=== PATIENT | female | born 1945 | race Caucasian/White ===

== ENCOUNTER → 2018-02-24 08:11 | Outpatient (CLI) | payer MEDICARE, OTHER, SELFPAY ==
--- NOTE | 2018-02-24 | DI.ECHO.S_ITS ---
[facility]---------+ [facility] +---------+ : : [address] : [address] : : : : [id number] : : : : Phone: [phone]+ Echocardiogram Report + + :Name: KERRY WALTON Study Date: 02/24/2018 Height: 65 in : :[facility] Weight: 157 lb : : Gender: Female BSA: 1.8 m2 : :: 1945 Age: 72 yrs BP: 132/74 mmHg: :Reason For Study: Dyspnea : : Performed By: Nicole Quiroga : :Referring: NELDA MARROQUIN J : + + Interpretation Summary The left ventricle is normal in size, wall thickness, and systolic function without any focal wall motion abnormalities with the ejection fraction visually estimated to be 60-65%. Assessment of diastolic parameters indicates normal left ventricular diastolic function and normal filling pressures. The right ventricle is normal in size and function and the right ventricular systolic pressure is estimated at 23 mmHg assuming a right atrial pressure of 3 mm Hg. Both atria are normal in size. There is mild tricuspid regurgitation. There is no other significant valvular heart disease. The ascending aorta is at the upper limits of normal in size. Procedure: A two-dimensional transthoracic echocardiogram with color flow and Doppler was performed. The study quality was technically good. There is no prior echocardiogram noted for this patient. The patient was in normal sinus rhythm during the exam. Left Ventricle: The left ventricle is normal in size, wall thickness, and systolic function without any focal wall motion abnormalities. The ejection fraction is estimated to be 60-65%. Assessment of diastolic parameters indicates normal left ventricular diastolic function and normal filling pressures. Right Ventricle: The right ventricle is normal in size and function. Atria: Both atria are normal in size. The interatrial septum is intact with no evidence for an atrial septal defect. Mitral Valve: There is mild mitral annular calcification. The mitral valve leaflets appear borderline thickened, but open well. There is trace mitral regurgitation. Aortic Valve: The aortic valve is trileaflet. The aortic valve is slightly calcified. The aortic valve opens well. There is no aortic valve stenosis. No aortic regurgitation is present. Tricuspid Valve: The tricuspid valve is normal in structure and function. There is mild tricuspid regurgitation. The right ventricular systolic pressure is estimated at 23 mmHg assuming a right atrial pressure of 3 mm Hg. Pulmonic Valve: The pulmonic valve is not well seen, but is grossly normal. There is trace pulmonic regurgitation. There is no other significant valvular heart disease. Great Vessels: The aortic root is normal size. The ascending aorta is at the upper limits of normal in size. The IVC is of normal diameter and collapses greater than 50% with a sniff. This suggests a low right atrial pressure of 3 mm Hg. Pericardium/ Pleura There is no pericardial effusion. There is no pleural effusion. MMode/2D Measurements & Calculations LVIDd: 4.5 cm Ao root diam: 3.0 cm LVIDs: 2.9 cm Aortic Jxn: 2.5 cm FS: 35.6 % asc Aorta Diam: 3.3 cm EPSS: 0.56 cm Ao Arch Diam (Prox Trans): 2.8 cm IVSd: 0.84 cm LVPWd: 0.80 cm LV martinez. diameter/BSA (cm/m^2): 2.5 LV sys. diameter/BSA (cm/m^2): 1.6 LA dimension: 3.2 cm RA long axis: 4.1 cm LA A2 area: 22.3 cm2 RA area: 11.4 cm2 LA A4 area: 14.4 cm2 RA vol: 26.8 ml LA length (vol): 4.8 cm RA : 15.0 ml/m2 LA vol: 56.2 ml IVC diam: 1.7 cm LA vol index: 31.5 ml/m2 RVDd major: 4.7 cm RVD1 (basal): 3.3 cm RVD2 (mid): 2.7 cm Doppler Measurements & Calculations Ao V2 max: 163.4 cm/sec MV E max juan carlos: 81.2 cm/sec Ao V2 mean: 106.0 cm/sec MV A max juan carlos: 81.2 cm/sec Ao max P.7 mmHg MV E/A: 1.0 Ao mean P.4 mmHg Med Peak E' Juan Carlos: 5.6 cm/sec Ao V2 VTI: 35.3 cm E/E' med: 14.5 Lat Peak E' Juan Carlos: 6.3 cm/sec E/E' lat: 12.8 E/e' average: 13.7 MV dec time: 0.23 sec MV P1/2t: 69.0 msec TR max juan carlos: 220.5 cm/sec MV P1/2t max juan carlos: 82.0 cm/sec TR max P.5 mmHg MVA(P1/2t): 3.2 cm2 PA V2 max: 84.8 cm/sec PA V2 mean: 56.3 cm/sec PA mean P.5 mmHg PA Accel Time: 0.12 sec Reading Physician:HERMANN
== END ==
PROVIDERS: Visit Provider Family Medicine
DX: R06.00 Dyspnea, unspecified (principal)
CPT/HCPCS: 93306

== ENCOUNTER → 2019-06-28 09:52 | Outpatient (CLI) | payer MEDICARE, OTHER, SELFPAY | PROVIDERS: PCP Internal Medicine; Visit Provider Internal Medicine | DX: M85.852 Other specified disorders of bone density and structure, left thigh (principal); E07.9 Disorder of thyroid, unspecified; Z82.62 Family history of osteoporosis | CPT/HCPCS: 77080 ==

== ENCOUNTER → 2019-10-18 18:57 | Outpatient (ROUT) | payer MEDICARE, OTHER, SELFPAY ==
[2019-10-18 19:51] LABS: TSH w/ Reflex to FT4 1.31 uIU/mL (0.47-4.68)
== END ==
PROVIDERS: PCP Internal Medicine; Visit Provider Internal Medicine
DX: E03.9 Hypothyroidism, unspecified (principal)
CPT/HCPCS: 84443

== ENCOUNTER → 2019-11-23 07:34 | Outpatient (CLI) | payer MEDICARE, OTHER, SELFPAY ==
--- NOTE | 2019-11-23 09:15 | PM.TREADMILL ---
Cardiac Stress Test Report Referral & Results Date Patient Seen: 11/23/19 Time Patient Seen: 09:15 Requesting provider: Jazmin Roberts Indication: chest pain Rest ECG: sinus rhythm Procedure Note: Standard angelita protocol, 7:02, 7 mets Very good exercise capacity Normal hemodynamic response to exercise 4/10 chest pain at rest which did not increase with exercise, not suggestive of angina; no ecg changes with chest pain Resting ecg normal sinus rhythm, nonspecific st changes, no ectopy Impression: nonconclusive exercise stress test; MIBI images pending Please note: Actual ECG tracings can be found in the PACS system.
--- NOTE | 2019-11-24 14:05 | DI.NM.S_ITS ---
DATE OF SERVICE: PROCEDURE: Exercise perfusion study. DATE OF STUDY: 11/23/2019. INDICATIONS: Chest pain. RADIOPHARMACEUTICAL: 24.4 millicurie technetium-99m Myoview intravenous was injected at stress and 24.1 millicurie technetium-99m Myoview intravenous was injected at rest. CARDIAC STRESS: The patient underwent exercise perfusion study under the supervision of an attending staff. She walked on Nathaniel protocol for 7 minute 2 seconds, achieving 97% of target heart rate with normal blood pressure response. The patient achieved functional aerobic impairment of -29% and 10.1 METS of workload. She had baseline chest pain prior to exercise, on a scale of 1-10, it was 4 in intensity. Baseline rhythm was sinus. During stress, no ischemic changes. No significant arrhythmias. RAW DATA: Breast shadow was seen. GATED STUDY: Resting LV ejection fraction 77% and stress LV ejection fraction 85% without any obvious wall motion abnormalities. Resting end-diastolic volume 66 mL. No transient ischemic dilatation. TID ratio 1.03, which is within normal limits. Lung heart ratio 0.25, which is within normal limits. MYOCARDIAL PERFUSION SCAN: Stress supine and resting supine images revealed a small size minimally decreased perfusion of apex which got resolved during prone images suggestive of breast tissue attenuation artifact. No convincing ischemia or infarction. CONCLUSION: I will call this study a normal myocardial perfusion study with evidence of breast tissue attenuation artifact which got resolved during prone images. Good exercise tolerance. No ischemic EKG changes. Preserved LV function. Normal hemodynamic response. The patient has resting chest discomfort. As far as perfusion scan is concerned, this is a low risk myocardial perfusion scan. Consider workup for other alternative diagnosis of chest pain. Carmel Newman - NITA/lanette/da doc#: [id number]/job#: [id number] dd: 11/24/2019 12:44:00 dt: 11/24/2019 13:29:00 DICTATING MD/COPIES TO: Avery Pastrana MD COPIES MNE: SHARMILA;
== END ==
PROVIDERS: PCP Internal Medicine; Referring Provider Internal Medicine; Visit Provider Internal Medicine
DX: R07.9 Chest pain, unspecified (principal)
CPT/HCPCS: 78452; 93017; A9502

== ENCOUNTER → 2019-12-09 18:21 | Outpatient (ROUT) | payer MEDICARE, OTHER, SELFPAY ==
[2019-12-09 19:08] LABS: Alanine Aminotransferase 25 IU/L (<35); Alkaline Phosphatase 89 U/L (38-126); Aspartate Aminotransferase 29 IU/L (14-36); Bilirubin Total 0.5 mg/dL (0.2-1.3); Lipase 146 U/L (23-300)
== END ==
PROVIDERS: PCP Internal Medicine; Visit Provider Internal Medicine
DX: R10.9 Unspecified abdominal pain (principal)
CPT/HCPCS: 82247; 83690; 84075; 84450; 84460

== ENCOUNTER → 2019-12-13 11:57 | Outpatient (CLI) | payer MEDICARE, BC, SELFPAY ==
--- NOTE | 2019-12-13 | DI.CT.S_ITS ---
PROCEDURE: CT CHEST W CON INDICATIONS: Unspecified abdominal pain TECHNIQUE: After the administration of intravenous contrast, 5 mm thick sections acquired from the pulmonary apices to the posterior costophrenic angles. 1 mm axial lung, 5 mm thick coronal and sagittal reformats and 7 mm axial MIP were acquired. For radiation dose reduction, the following was used: automated exposure control, adjustment of mA and/or kV according to patient size. COMPARISON: None. FINDINGS: Image quality: Excellent. Lungs and pleura: No acute air space opacities. No pleural effusions or pneumothorax. Central and peripheral airways are patent and normal in caliber. Mediastinum: Heart size is normal. No pericardial effusion. No mediastinal or hilar adenopathy by size criteria. Thoracic aorta and central pulmonary arteries are normal in size. Esophagus is normal in caliber. No hiatal hernia. Bones and chest wall: No suspicious bony lesions. No vertebral body compression fractures. No axillary or supraclavicular adenopathy by size criteria. Thyroid gland appears normal. Abdomen: Visualized upper abdominal solid organs appear normal. Upper abdominal bowel loops are normal in caliber. Several small hypodensities, subcentimeter, are present within the liver parenchyma and 1 a simple appearing cyst measuring only 1.8 cm in maximal dimension is noted. No solid mass lesion is found. IMPRESSION: 1. Source of epigastric pain is not identified. 2. Scattered cysts are present within the liver parenchyma, and only one measures over 1 cm located at the left medial hepatic segment superiorly near the IVC. No followup recommended. Dictated by: Parmjit Tyson M.D. on 12/13/2019 at 16:14 Approved by: Parmjit Tyson M.D. on 12/13/2019 at 16:17
[2019-12-13 14:44] LABS: Blood Urea Nitrogen 15 mg/dL (7-17); Calcium 9.4 mg/dL (8.4-10.2); Carbon Dioxide 32 mmol/L (22-32); Chloride 103 mmol/L (98-107); Estimated Glomerular Filt Rate > 60.0 mL/min (>60); Glucose 122 mg/dL (80-110); HEMOLYSIS < 15 (0-50); Potassium 3.9 mmol/L (3.4-5.1); Sodium 141 mmol/L (137-145)
== END ==
PROVIDERS: PCP Internal Medicine; Referring Provider Internal Medicine; Visit Provider Internal Medicine
DX: R10.13 Epigastric pain (principal); K76.89 Other specified diseases of liver
CPT/HCPCS: 36415; 71260; 80048; Q9967

== ENCOUNTER → 2020-04-05 09:36 | Outpatient (CLI) | payer MEDICARE, BC, SELFPAY ==
--- NOTE | 2020-04-05 | DI.MG.S_ITS ---
BILATERAL DIGITAL SCREENING MAMMOGRAM 3D/2D WITH CAD: 04/05/2020 CLINICAL: Routine screening. Comparison is made to exams dated: 01/14/2019 mammogram, 09/04/2017 mammogram, and 05/13/2016 mammogram - [facility]. There are scattered fibroglandular elements in both breasts. Current study was also evaluated with a Computer Aided Detection (CAD) system. No significant masses, calcifications, or other findings are seen in either breast. There has been no significant interval change. IMPRESSION: NEGATIVE There is no mammographic evidence of malignancy. A 1 year screening mammogram is recommended. This exam was interpreted at Station ID: [id number]. NOTE: For mammograms, a report in lay terms will be sent to the patient. Approximately 15% of breast malignancies will not be visualized mammographically. In the management of a palpable breast mass, a negative mammogram must not discourage biopsy of a clinically suspicious lesion. Electronically Signed By: Kash hu/grisel:04/05/2020 11:32:33 letter sent: Normal Exam ACR BI-RADS Category 1: Negative 3341F
== END ==
PROVIDERS: PCP Internal Medicine; Referring Provider Internal Medicine; Visit Provider Internal Medicine
DX: Z12.31 Encounter for screening mammogram for malignant neoplasm of breast (principal)
CPT/HCPCS: 77063; 77067

== ENCOUNTER → 2021-04-27 10:07 | Outpatient (CLI) | payer MEDICARE, OTHER, SELFPAY ==
--- NOTE | 2021-04-27 | DI.MG.S_ITS ---
BILATERAL DIGITAL SCREENING MAMMOGRAM 3D/2D WITH CAD: 04/27/2021 CLINICAL: Routine screening. Comparison is made to exams dated: 04/05/2020 mammogram - [facility], 01/14/2019 mammogram, and 09/04/2017 mammogram - [facility]. There are scattered fibroglandular elements in both breasts. Current study was also evaluated with a Computer Aided Detection (CAD) system. No significant masses, calcifications, or other findings are seen in either breast. There has been no significant interval change. IMPRESSION: NEGATIVE There is no mammographic evidence of malignancy. A 1 year screening mammogram is recommended. This exam was interpreted at Station ID: [id number]. NOTE: For mammograms, a report in lay terms will be sent to the patient. Approximately 15% of breast malignancies will not be visualized mammographically. In the management of a palpable breast mass, a negative mammogram must not discourage biopsy of a clinically suspicious lesion. Electronically Signed By: Papa marley/grisel:04/27/2021 10:54:26 letter sent: Normal Exam ACR BI-RADS Category 1: Negative 3341F
== END ==
PROVIDERS: PCP Internal Medicine; Referring Provider Internal Medicine; Visit Provider Internal Medicine
DX: Z12.31 Encounter for screening mammogram for malignant neoplasm of breast (principal)
CPT/HCPCS: 77063; 77067

== ENCOUNTER → 2021-07-16 09:07 | Outpatient (CLI) | payer MEDICARE, OTHER, SELFPAY ==
[2021-07-16 10:46] LABS: COVID19 -Nasal RAPID Negative (Negative)
== END ==
PROVIDERS: PCP Internal Medicine; Referring Provider Nurse Practitioner Family; Visit Provider Nurse Practitioner Family
DX: Z20.822 Contact with and (suspected) exposure to COVID-19 (principal); Z01.812 Encounter for preprocedural laboratory examination
CPT/HCPCS: 87635; C9803

== ENCOUNTER 2021-07-17 10:16 | Day surgery (SDC) | payer MEDICARE, OTHER, SELFPAY ==
--- NOTE | 2021-07-17 10:50 | PM.PREOP ---
Pre-operative Note Interval Note History & Physical reviewed/Exam performed by Physician: Yes Changes to H&P: No
--- NOTE | 2021-07-17 10:51 | PM.OP.1 ---
Operative Date/Time/Diagnoses Pre-op diagnosis: Nuclear Cataract Left eye Post-op diagnosis: same Procedure & Clinicians Same procedure as scheduled: Yes Surgeon: Emeterio Lawson Anesthesia Type: MAC +/- and Sedation Operative Notes Procedure in detail: Patient brought to the operating suite. Tetracaine drops placed in the left eye. Marking instrument was used to rachael the vertical and horizontal meridians. Patient was prepped and draped in sterile manner. Wire lid speculum was placed in the eye. Betadine drops were placed on the eye. This was irrigated. Lidocaine jelly was placed on the eye. A paracentesis port was created with a side-port blade. 0.1 mL 1% preservative free lidocaine was injected into the anterior chamber. The anterior chamber was deepened with viscoelastic. 2.6 mm keratome was used to create a temporal clear corneal incision. Cystotome and Utrata forceps were used to create continuous tear capsulorrhexis. Balanced salt solution was used to hydro dissect the nucleus. The phacoemulsification handpiece was inserted and the nucleus was removed using the stop and chop technique. The irrigation aspiration handpiece was inserted and the remaining cortex was removed. Anterior chamber was deepened with viscoelastic. An Arreguin [id number] intraocular lens with a power of 23.5 was injected into the capsular bag. Irrigation aspiration handpiece was inserted and the remaining viscoelastic was removed. The lens was rotated to the 90 degree meridian. Incision was hydrated with balanced salt solution and found to be leak free with pressure with Weck-Nel sponges. 0.1 mL Vigamox injected anterior chamber. 0.3 mL Kenalog 10 mg was injected subconjunctivally. Lid speculum was removed. The patient left the operating room in excellent condition. Complications: none Post-operative Condition: stable Disposition: same day surgery
[2021-07-17] MEDS: PROPARACAINE 0.5% OPHTH SOL 2 DROPS EYE-OP (10:53)
[2021-07-17 10:54] VITALS: BP 142/73; PULSE 73; RESP 16; TEMP 36.5; O2SAT 100; BMI 25.0
[2021-07-17] MEDS: CATARACT EYE COMPOUND (10 DROPS/SYRINGE) 3 DROPS EYE-OP (11:01)
[2021-07-17] MEDS: MOXIFLOXACIN INJ 4 MG/0.8 ML VIAL 0.5 MG EYE-OP (11:42)
[2021-07-17] MEDS: HYALURONATE SODIUM 30 MG-10 MG/ML SYRINGES 1 BOX INTRAOCULA (11:42)
[2021-07-17] MEDS: LIDOCAINE 2% (GLYDO) 6 ML GEL TOP (11:42)
[2021-07-17] MEDS: TRIAMCINOLONE 50 MG/5 ML VIAL INJ (11:43)
[2021-07-17] MEDS: TETRACAINE 0.5% OPHTH DROPS 4 ML 2 DROPS EYE-OP (11:43)
[2021-07-17] MEDS: PHENYLEPHRINE/LIDOCAINE VIAL (OR) 0.2 ML EYE-OP (11:43)
[2021-07-17] MEDS: BALANCED SALT IRRIG SOLN NO.2 500 ML, EPINEPHrine 1 MG IRR (11:44)
[2021-07-17 12:55] VITALS: BP 137/74; PULSE 74; RESP 16; TEMP 36.6; O2SAT 98
== END 2021-07-17 13:00 | disposition home or self-care (01) ==
PROVIDERS: PCP Internal Medicine; Referring Provider Ophthalmology; Visit Provider Ophthalmology
PROC: (CPT 66984; principal; 2021-07-17 12:15)
DX: H25.12 Age-related nuclear cataract, left eye (principal); E03.9 Hypothyroidism, unspecified
CPT/HCPCS: 66984; J0171; J2250; J3301; V2787

== ENCOUNTER → 2021-07-30 13:36 | Outpatient (CLI) | payer MEDICARE, OTHER, SELFPAY ==
[2021-07-30 16:55] LABS: COVID19 -Nasal RAPID Negative (Negative)
== END ==
PROVIDERS: PCP Internal Medicine; Visit Provider Nurse Practitioner Family
DX: Z20.822 Contact with and (suspected) exposure to COVID-19 (principal)
CPT/HCPCS: 87635

== ENCOUNTER 2021-07-31 07:20 | Day surgery (SDC) | payer MEDICARE, OTHER, SELFPAY ==
[2021-07-31 07:33] VITALS: BP 132/77; PULSE 86; RESP 16; TEMP 36.1; O2SAT 98; BMI 25.0
[2021-07-31] MEDS: PROPARACAINE 0.5% OPHTH SOL 2 DROPS EYE-OP (07:41)
[2021-07-31] MEDS: CATARACT EYE COMPOUND (10 DROPS/SYRINGE) 3 DROPS EYE-OP (07:45)
--- NOTE | 2021-07-31 09:06 | P.OP_ITS ---
Operative Date/Time/Diagnoses Pre-op diagnosis: Nuclear cataract right eye Procedure & Clinicians Procedure: Cataract Surgery Same procedure as scheduled: Yes Surgeon: Emeterio Lawson Anesthesia Type: MAC +/- and Sedation Operative Notes Procedure in detail: Patient brought to the operating suite. Tetracaine drops placed in the right eye. Marking instrument was used to rachael the vetical and horizontal meridians. Patient was prepped and draped in sterile manner. Wire lid speculum was placed in the eye. Marking instrument was used to rachael the 75 degree meridian. Betadine drops were placed on the eye. This was irrigated. Lidocaine jelly was placed on the eye. A paracentesis port was created with a side-port blade. 0.1 mL 1% preservative free lidocaine was injected into the anterior chamber. The anterior chamber was deepened with viscoelastic. 2.6 mm keratome was used to create a temporal clear corneal incision. Cystotome and Utrata forceps were used to create continuous tear capsulorrhexis. Balanced salt solution was used to hydro dissect the nucleus. The phacoemulsification handpiece was inserted and the nucleus was removed using the stop and chop technique. The irrigation aspiration handpiece was inserted and the remaining cortex was removed. Anterior chamber was deepened with viscoelastic. An Arreguin [id number] intraocular lens with a power of 21.5 was injected into the capsular bag. Irrigation aspiration handpiece was inserted and the remaining viscoelastic was removed. The lens was rotated to the 75 degree meridian. Incision was hydrated with balanced salt solution and found to be leak free with pressure with Weck- Nel sponges. 0.1 mL Vigamox injected anterior chamber. 0.3 mL Kenalog 10 mg was injected subconjunctivally. Lid speculum was removed. The patient left the operating room in excellent condition. Complications: none Post-operative Condition: stable Disposition: same day surgery
--- NOTE | 2021-07-31 09:06 | PM.PREOP ---
Pre-operative Note Interval Note History & Physical reviewed/Exam performed by Physician: Yes Changes to H&P: No
[2021-07-31] MEDS: MOXIFLOXACIN INJ 4 MG/0.8 ML VIAL 0.5 MG EYE-OP (09:18)
[2021-07-31] MEDS: PHENYLEPHRINE/LIDOCAINE VIAL (OR) 0.2 ML EYE-OP (09:18)
[2021-07-31] MEDS: LIDOCAINE 2% (GLYDO) 6 ML GEL TOP (09:18)
[2021-07-31] MEDS: TRIAMCINOLONE 50 MG/5 ML VIAL INJ (09:18)
[2021-07-31] MEDS: HYALURONATE SODIUM 30 MG-10 MG/ML SYRINGES 1 BOX INTRAOCULA (09:18)
[2021-07-31] MEDS: TETRACAINE 0.5% OPHTH DROPS 4 ML 2 DROPS EYE-OP (09:19)
[2021-07-31] MEDS: BALANCED SALT IRRIG SOLN NO.2 500 ML, EPINEPHrine 1 MG IRR (09:19)
[2021-07-31 09:35] VITALS: BP 106/64; PULSE 82; RESP 16; TEMP 36.7; O2SAT 99
--- NOTE | 2021-07-31 10:00 | SUR.PHASEII ---
Pt ready to go ride called, pt left unit in stable condition.
== END 2021-07-31 09:55 | disposition home or self-care (01) ==
PROVIDERS: PCP Internal Medicine; Referring Provider Ophthalmology; Visit Provider Ophthalmology
PROC: (CPT 66984; principal; 2021-07-31 09:15)
DX: H25.11 Age-related nuclear cataract, right eye (principal); E03.9 Hypothyroidism, unspecified
CPT/HCPCS: 66984; J0171; J2250; J3301; V2787

== ENCOUNTER → 2021-10-15 09:03 | Outpatient (CLI) | payer MEDICARE, OTHER, SELFPAY ==
[2021-10-15 12:20] LABS: COVID19 -Nasal RAPID Negative (Negative)
== END ==
PROVIDERS: PCP Internal Medicine; Referring Provider Nurse Practitioner Family; Visit Provider Nurse Practitioner Family
DX: Z01.812 Encounter for preprocedural laboratory examination (principal); Z20.822 Contact with and (suspected) exposure to COVID-19
CPT/HCPCS: 87635; C9803

== ENCOUNTER 2021-10-16 10:54 | Day surgery (SDC) | payer MEDICARE, OTHER, SELFPAY ==
[2021-10-16] VITALS (7 sets, daily range): BP systolic 133–153; BP diastolic 66–80; PULSE 62–70; RESP 14–18; TEMP 36.4–36.8; O2SAT 97–98; BMI 25.0
--- NOTE | 2021-10-16 | PATH_ITS ---
[facility] Accession Number: [id number] . 01 Material submitted: . PART A: cecum - CECAL POLYP PART B: duodenum - BIOPSY OF SECOND PORTION OF DUODENUM PART C: duodenum bulb - BIOPSY DUODENAL BULB PART D: stomach - BIOPSY ANTRUM STOMACH PART E: gastrointestinal site - GASTRIC POLYPS . 02 Diagnosis: A. Cecum, Polyp, Biopsy: Colonic mucosa with surface hyperplastic-type changes. Additional levels were examined. Negative for dysplasia and malignancy. . B. Duodenum, Second Portion, Biopsy: Duodenal mucosa with no diagnostic abnormality. Negative for active inflammation, features of sprue, dysplasia, or malignancy. . C. Duodenum Bulb, Biopsy: Duodenal mucosa with gastric heterotopia. Negative for intraepithelial lymphocytosis or villous blunting. Negative for dysplasia and malignancy. . D. Stomach Antrum, Biopsy: Antral mucosa with no diagnostic abnormality. Negative for Helicobacter by immunohistochemistry. Negative for intestinal metaplasia. Negative for dysplasia and malignancy. . E. Stomach, Polyps, Biopsies: Fundic gland polyps. Negative for Helicobacter organisms on H/E stain. Negative for intestinal metaplasia. Negative for dysplasia and malignancy. . [facility] 10/19/2021 1057 Local . 02 Electronically signed: . Giselle Conway MD, Pathologist NPI- [id number] . 01 Gross description: . Part A: CECAL POLYP: Received in formalin is 1 fragment(s) of herndon, soft tissue measuring 0.3 x 0.2 x 0.2 cm submitted entirely in 1 cassette(s) Part B: BIOPSY OF SECOND PORTION OF DUODENUM: Received in formalin is 1 fragment(s) of herndon, soft tissue measuring 0.3 x 0.2 x 0.2 cm submitted entirely in 1 cassette(s) Part C: BIOPSY DUODENAL BULB: Received in formalin are 2 fragment(s) of herndon, soft tissue measuring 0.1 x 0.1 x 0.1 cm in aggregate submitted entirely in 1 cassette(s) Part D: BIOPSY ANTRUM STOMACH: Received in formalin are 2 fragment(s) of herndon, soft tissue measuring 0.1 x 0.1 x 0.1 cm to 0.3 x 0.1 x 0.1 cm submitted entirely in 1 cassette(s) Part E: GASTRIC POLYPS: Received in formalin are 2 fragment(s) of herndon, soft tissue measuring 0.2 x 0.2 x 0.2 cm to 0.3 x 0.2 x 0.2 cm submitted entirely in 1 cassette(s) /DUSTY 10/17/2021 1949 Local . 02 Microscopic: . A. Additional levels were examined. . D. An immunohistochemical stain was performed to evaluate for Helicobacter organisms and is negative. The control stain showed appropriate reactivity. . * This test was developed and its performance characteristics determined by [facility]. It has not been cleared or approved by the U.S. Food and Drug Administration. The FDA has determined that such clearance or approval is not necessary. This test is used for clinical purposes. It should not be regarded as investigational or for research. . 02 Pathologist provided ICD-10: D50.9 . 02 CPT . 481571, 257457, 980524, 733925, 241596, W38864 Performed at: 01 [facility] Cytology [address] [id number] MD Kash Menjivar MD Phone: [phone] Performed at: 02 [facility] [address] [place] [id number] MD Giselle Conway MD Phone: [phone]
[2021-10-16] MEDS: SODIUM CHLORIDE 0.9% 1,000 ML 84 ML IV (11:31)
--- NOTE | 2021-10-16 12:29 | PM.HP.1 ---
History of Present Illness History of Present Illness Date Patient Seen: 10/16/21 Time Patient Seen: 12:30 Chief complaint: DX COLONOSCOPY & EGD W/POSS BX Narrative: Postprandial fullness iron deficiency anemia I reviewed my office note from September 10. No changes. Patient History Medical History Bilateral inguinal hernia GERD (gastroesophageal reflux disease) Hypercholesteremia Hypothyroidism Iron deficiency anemia Surgical History Hx of appendectomy Family & Social History Social History: household members spouse Tobacco & Substance use: Smoking Status Never smoker alcohol intake current alcohol intake frequency holiday/special occasion Substance Use Type does not use Meds Home Medications and Allergies Home Medications Medication Instructions Recorded Confirmed Type multivitamin (Multiple Vitamins) 1 tab PO QDAY #0 06/14/17 07/17/21 History iron 40 mg capsule 35 mg PO 07/17/21 History atorvastatin 10 mg PO DAILY 10/16/21 10/16/21 History levothyroxine 250 mcg PO DAILY 10/16/21 10/16/21 History Allergies Allergy/AdvReac Type Severity Reaction Status Date / Time meperidine [From Demerol] AdvReac Unknown Vomiting Verified 10/16/21 11:05 Review of Systems Review of Systems ROS: Yes All systems reviewed with the patient and are negative except as otherwise documented Exam Vital Signs (past 8 hours): - 10/16/21 11:14 Temperature 98.3 F Pulse Rate 70 Respiratory Rate 18 Blood Pressure 153/75 H Pulse Oximetry 97 Oxygen Delivery Method Room Air Const General: cooperative and comfortable Orientation: alert HENDE Head: normocephalic Ears: external ears normal Nose: external nose normal Face and sinus: normal facial exam Mouth: oral mucosae normal Eyes General: appearance normal, both eyes and all related structures Neck Neck: normal visual inspection Chest Chest: normal inspection of the chest Resp Effort & Inspection: normal respiratory effort Cardio Rate: regular rate GI Inspection: normal to inspection Skin General: no rashes or lesions noted and No jaundice Neuro General: patient alert and moves all extremities Cognition: normal cognition Speech: speech normal Extrem General: no pedal edema Psych Appearance: grossly normal Assessment & Plan Assessment & Plan narrative: 75-year-old female with iron deficiency anemia. She has some postprandial fullness. EGD and colonoscopy are pursued today. Time Spent With Patient Critical Care time: I spent a total of [] minutes of critical care time on this patient's care today; this time is exclusive of procedural time.
--- NOTE | 2021-10-16 12:31 | PM.PREOP ---
Pre-operative Note COVID-19 COVID-19 status: Negative Result date/Date tested (Pos, Neg/Pending): 10/15/21 Interval Note History & Physical reviewed/Exam performed by Physician: Yes Changes to H&P: No ASA Class (for procedural sedation): II
--- NOTE | 2021-10-16 13:34 | PM.OP.EC ---
Operative Date/Time/Diagnoses Date of procedure: 10/16/21 Time of procedure: 13:34 Pre-op diagnosis: Iron deficiency anemia early satiety Post-op diagnosis: same Procedure & Clinicians Study performed: EGD with biopsies and colonoscopy with cold snare polypectomy Same procedure as scheduled: Yes Indications: Iron deficiency anemia and early satiety Surgeon: Alfredo Agosto Procedure Notes SCOAP/Timeout: Done Procedure in detail: After the risks and benefits were explained, written and verbal informed consent was obtained. The patient was brought into the procedure room and placed into the left lateral decubitus position. Please see nurse professor of public administration notes for sedation details. The scope was introduced into the mouth through the bite block and advanced under direct visualization to the 2nd portion of the duodenum. The scope was slowly withdrawn carefully examining the mucosa for any defects or lesions. Retroflexed views were accomplished in the stomach. The stomach was decompressed, the scope was then removed from the patient who tolerated the procedure well. The patient was then turned around a digital rectal examination accomplished no significant pathology apart from some mild internal hemorrhoids. Scope was introduced into the rectum and advanced to the cecum as identified by the appendiceal orifice and ileocecal valve. The terminal ileum was briefly interrogated the scope was then slowly withdrawn to carefully examine the mucosa for any defects or lesions. Multiple direct views were made through the dentate line for exclusion of pathology. The colon was decompressed scope removed from the patient who tolerated the procedure well. Pediatric colonoscope Bowel prep adequate Scope withdrawal time: 9 minutes Sedation minutes: 38 Complications: none Impression: 1. Duodenum: The configuration of the duodenum was a little unusual and reduction in the 2nd portion was quite difficult to accomplish the scope wanted to fall back into stomach. As a result of the configuration the major papilla was identified in the 5:00 a.m. location for most of our examination of D2. In light of the iron deficiency I took a couple of biopsies from the duodenal mucosa for exclusion of sprue. 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 2. Stomach: No ulcers no outlet obstruction. Mild erythema throughout the antrum. Biopsies were taken in the antrum for exclusion of Helicobacter pylori. Otherwise there is several diminutive benign-appearing polyps in the proximal stomach and body. Couple of these were sampled for histopathologic analysis. Otherwise retroflexed views of the LES were unremarkable. 3. Esophagus: The squamocolumnar junction correlated with the top of the gastric folds. No suggestion of Vargas's. The patient did have LA grade a erosive esophagitis no strictures no mass lesions the remainder of the esophagus was unremarkable. 4. Terminal ileum: This appeared visually normal. 5. Colon: There was a 5 mm sessile polyp in the cecum removed with cold snare polypectomy. Otherwise no additional significant mucosal pathology was appreciated throughout. The patient had a moderately tortuous rectosigmoid region with respect to navigation. Endoscopic diagnosis 1. Irregular appearing duodenal bulb 2. Multiple gastric polyps 3. LA grade a erosive esophagitis 4. Mild gastropathy 5. Colon polyp 6. Grade 1 internal hemorrhoids Post-procedure Plan for aftercare: 1. Await histopathology 2. If there are no findings histologically to account for the iron deficiency picture, consider capsule endoscopy if the iron deficiency/anemia persists in the absence of frequent phlebotomy. Disposition: PACU
== END 2021-10-16 14:10 | disposition home or self-care (01) ==
PROVIDERS: PCP Internal Medicine; Referring Provider Internal Medicine Gastroenterology; Visit Provider Internal Medicine Gastroenterology
PROC: 0DJ08ZZ Inspection of Upper Intestinal Tract, Via Natural or Artificial Opening Endoscopic (ICD-10-PCS; CPT 43235; principal; 2021-10-16 12:00)
PROC: 0DJD8ZZ Inspection of Lower Intestinal Tract, Via Natural or Artificial Opening Endoscopic (ICD-10-PCS; CPT 45378; 2021-10-16 12:00)
DX: D50.9 Iron deficiency anemia, unspecified (principal); R68.81 Early satiety; E03.9 Hypothyroidism, unspecified; K31.7 Polyp of stomach and duodenum; K20.80 Other esophagitis without bleeding; K31.9 Disease of stomach and duodenum, unspecified; K64.0 First degree hemorrhoids
CPT/HCPCS: 45385; 43239; J2704

== ENCOUNTER → 2022-05-01 11:35 | Outpatient (CLI) | payer MEDICARE, OTHER, SELFPAY ==
--- NOTE | 2022-05-01 11:38 | DI.MG.S_ITS ---
BILATERAL DIGITAL SCREENING MAMMOGRAM 3D/2D WITH CAD: 05/01/2022 CLINICAL: Routine screening. Comparison is made to exams dated: 04/27/2021 mammogram, 04/05/2020 mammogram - [facility], and 01/14/2019 mammogram - [facility]. The tissue of both breasts is predominantly fatty. Current study was also evaluated with a Computer Aided Detection (CAD) system. No significant masses, calcifications, or other findings are seen in either breast. There has been no significant interval change. IMPRESSION: NEGATIVE There is no mammographic evidence of malignancy. A 1 year screening mammogram is recommended. Based on the Tyrer Cuzick model (a risk assessment model) the patient's lifetime risk is 1.9% and her 10 year risk is 0.0%. According to the ACR, ACS, and NCCN guidelines, an annual breast MRI exam along with mammogram is recommended if the patient's lifetime risk is 20% or greater. This exam was interpreted at Station ID: [id number]. NOTE: For mammograms, a report in lay terms will be sent to the patient. Approximately 15% of breast malignancies will not be visualized mammographically. In the management of a palpable breast mass, a negative mammogram must not discourage biopsy of a clinically suspicious lesion. Electronically Signed By: Kate romero/grisel:05/01/2022 16:02:06 letter sent: Normal Exam ACR BI-RADS Category 1: Negative 3341F
== END ==
PROVIDERS: PCP Internal Medicine; Referring Provider Internal Medicine; Visit Provider Internal Medicine
DX: Z12.31 Encounter for screening mammogram for malignant neoplasm of breast (principal)
CPT/HCPCS: 77063; 77067

== ENCOUNTER → 2022-07-02 09:17 | Outpatient (CLI) | payer MEDICARE, OTHER, SELFPAY ==
[2022-07-02 10:44] LABS: Add Manual Diff / Slide Review NO; Basophils Absolute Auto 0 /uL (0-100); Basophils Percent Auto 0.7 % (0-2); Eosinophils Absolute Auto 100 /uL (0-450); Eosinophils Percent Auto 1.7 % (2-4); Hematocrit 46.8 % (36-46); Hemoglobin 16.4 g/dL (12.0-16.0); Lymphocytes Absolute Auto 1900 /uL (1100-4500); Lymphocytes Percent Auto 27.9 % (25-40); Mean Corpuscular Hemoglobin 31.2 PG (26-34); Mean Corpuscular Volume 89.1 fL (80-100); Monocytes Absolute Auto 500 /uL (0-900); Monocytes Percent Auto 6.8 % (3-14); Neutrophils Absolute Auto 4200 /uL (1500-7000); Neutrophils Percent Auto 62.9 % (50-75); Platelet Count 209 X10^3/uL (150-400); Red Blood Cell Count 5.26 X10^6/uL (4.0-5.2); Red Cell Distribution Width 13.6 % (11.6-14.8); White Blood Cell Count 6.7 X10^3/uL (4.5-11.0)
[2022-07-02 10:52] LABS: Alanine Aminotransferase 21 IU/L (<35); Albumin 4.6 g/dL (3.5-5.0); Albumin Globulin Ratio 1.3 (1.0-2.8); Alkaline Phosphatase 89 U/L (38-126); Aspartate Aminotransferase 30 IU/L (14-36); BUN Creatinine Ratio 22.5 (6-22); Bilirubin Total 0.8 mg/dL (0.2-1.3); Blood Urea Nitrogen 16 mg/dL (7-17); Calcium 9.5 mg/dL (8.4-10.2); Carbon Dioxide 29 mmol/L (22-32); Chloride 97 mmol/L (98-107); Estimated Glomerular Filt Rate > 60 mL/min (>60); Globulin 3.6 g/dL (1.7-4.1); Glucose 109 mg/dL (80-110); HEMOLYSIS 15 (0-50); Lipase 110 U/L (23-300); Potassium 3.9 mmol/L (3.4-5.1); Sodium 135 mmol/L (137-145); Total Protein 8.2 g/dL (6.3-8.2)
--- NOTE | 2022-07-02 13:46 | DI.CT.S_ITS ---
PROCEDURE: CT ABDOMEN PELVIS W CON INDICATIONS: Generalized abdominal pain TECHNIQUE: After the administration of oral and IV contrast, axial sections were acquired from the lung bases to the pubic symphysis. Coronal and sagittal reformats were performed. For radiation dose reduction, the following was used: automated exposure control, adjustment of mA and/or kV according to patient size. COMPARISON: [facility], CT, CT CHEST W CON, 12/13/2019, 15:13. FINDINGS: Image quality: Excellent. Lung bases: Unremarkable. Heart: No significant findings. ABDOMEN: Liver: Stable low-density liver lesions are seen. A few of these cannot be defined as simple cysts, as they are mildly hyperdense. However, these are not significantly changed compared to the prior CT dated 12/13/2019. Gallbladder: Unremarkable. Biliary ducts: Unremarkable. Pancreas: Unremarkable. Spleen: Unremarkable. Adrenal Glands: Unremarkable. Kidneys and Ureters: Bilateral peripelvic cysts can be seen. There is no hydronephrosis. The kidneys demonstrate normal size and enhance symmetrically. Stomach and Bowel: Stomach, small bowel loops, and colon are unremarkable. Peritoneum: No abnormal intraperitoneal fluid. No free air. Ventral Wall: No hernia. Abdominal Nodes: No retroperitoneal or mesenteric adenopathy by size criteria. Vessels: Aorta and inferior vena cava are normal in size. PELVIS: Pelvic Organs: The uterus appears normal for age. No adnexal masses are seen. Bladder: Unremarkable. Pelvic Nodes: No enlarged lymph nodes. Miscellaneous: No inguinal hernias are seen. Bones: S-shaped scoliotic curvature is seen. Degenerative changes are seen, which are worst at the L1-L2 level. Mild grade 1 anterolisthesis is seen at L4-L5, without associated pars defects. IMPRESSION: A cause of generalized abdominal pain is not seen. Several low-density lesions are seen within the liver. These are not significantly changed compared to the prior CT dated 12/13/2019 and are considered to be benign, with a few of them likely representing hyperdense cysts. Incidental note is made of: Bilateral peripelvic cysts S shaped scoliotic curvature Focal L1-L2 degenerative change Dictated by: Vishal Butler M.D. on 07/02/2022 at 16:26 Approved by: Vishal Butler M.D. on 07/02/2022 at 16:31
== END ==
PROVIDERS: PCP Internal Medicine; Referring Provider Internal Medicine; Visit Provider Internal Medicine
DX: M47.816 Spondylosis without myelopathy or radiculopathy, lumbar region (principal); N94.89 Other specified conditions associated with female genital organs and menstrual cycle; K76.9 Liver disease, unspecified; R10.2 Pelvic and perineal pain; R63.0 Anorexia; R10.84 Generalized abdominal pain
CPT/HCPCS: 36415; 74177; 80053; 83690; 85025

== ENCOUNTER → 2022-07-16 15:40 | Outpatient (CLI) | payer MEDICARE, OTHER, SELFPAY ==
--- NOTE | 2022-07-16 15:47 | DI.RAD.S_ITS ---
PROCEDURE: XR PELVIS 1-2V INDICATIONS: RIGHT PELVIC PAIN TECHNIQUE: 1 view(s) of the pelvis acquired. COMPARISON: [facility], CT, CT ABDOMEN PELVIS W CON, 07/02/2022, 13:47. FINDINGS: Bones: No fractures or dislocations. No suspicious bony lesions. Moderate symmetric axial joint space narrowing with mild periarticular osteophyte formation. Degenerative disc and facet disease involves the inferior lumbar spine. Soft tissues: Visualized bowel gas pattern is normal. No suspicious soft tissue calcifications. IMPRESSION: Moderate symmetric hip joint degeneration. Dictated by: Viet SANTANA Interpreted: Ileana Carlson MD on 07/16/2022 at 16:01 Approved by: Ileana Carlson M.D. on 07/17/2022 at 8:15
== END ==
PROVIDERS: PCP Internal Medicine; Referring Provider Internal Medicine; Visit Provider Internal Medicine
DX: M16.11 Unilateral primary osteoarthritis, right hip (principal); M25.551 Pain in right hip; R10.2 Pelvic and perineal pain
CPT/HCPCS: 72170

== ENCOUNTER → 2023-06-23 13:12 | Outpatient (CLI) | payer MEDICARE, OTHER, SELFPAY ==
--- NOTE | 2023-06-23 | DI.MG.S_ITS ---
BILATERAL DIGITAL SCREENING MAMMOGRAM 3D/2D WITH CAD: 06/23/2023 CLINICAL: Routine screening. Comparison is made to exams dated: 05/01/2022 mammogram, 04/27/2021 mammogram, and 04/05/2020 mammogram - [facility]. There are scattered areas of fibroglandular density in both breasts (category b / 25%-50% glandular tissue). Current study was also evaluated with a Computer Aided Detection (CAD) system. No significant masses, calcifications, or other findings are seen in either breast. There has been no significant interval change. IMPRESSION: NEGATIVE There is no mammographic evidence of malignancy. A 1 year screening mammogram is recommended. Based on the Tyrer Cuzick model (a risk assessment model) the patient's lifetime risk is 2.5% and her 10 year risk is 0.0%. According to the ACR, ACS, and NCCN guidelines, an annual breast MRI exam along with mammogram is recommended if the patient's lifetime risk is 20% or greater. This exam was interpreted at Station ID: [id number]. NOTE: For mammograms, a report in lay terms will be sent to the patient. Approximately 15% of breast malignancies will not be visualized mammographically. In the management of a palpable breast mass, a negative mammogram must not discourage biopsy of a clinically suspicious lesion. Electronically Signed By: Abdi day/grisel:06/23/2023 13:42:59 letter sent: Normal Exam ACR BI-RADS Category 1: Negative 3341F
== END ==
PROVIDERS: PCP Internal Medicine; Referring Provider Internal Medicine; Visit Provider Internal Medicine
DX: Z12.31 Encounter for screening mammogram for malignant neoplasm of breast (principal)
CPT/HCPCS: 77063; 77067

== ENCOUNTER 2024-02-25 11:36 | Emergency (ER) | payer MEDICARE, OTHER, SELFPAY ==
[2024-02-25] VITALS (11 sets, daily range): BP systolic 139–182; BP diastolic 63–77; PULSE 57–75; RESP 12–29; O2SAT 91–99; BMI 22.9
--- NOTE | 2024-02-25 12:01 | DI.RAD.S_ITS ---
PROCEDURE: XR CHEST 1V INDICATIONS: chest pain TECHNIQUE: One view of the chest was acquired. COMPARISON: None. FINDINGS: Surgical changes and devices: None. Lungs and pleura: Lungs are clear. No pleural effusions or pneumothorax. Mediastinum: Mediastinal contours appear normal. Heart size is normal. Bones and chest wall: No suspicious bony lesions. Overlying soft tissues appear unremarkable. IMPRESSION: No acute cardiopulmonary abnormality is seen. Dictated by: Christiano Davies M.D. on 02/25/2024 at 12:46 Approved by: Christiano Davies M.D. on 02/25/2024 at 12:46
[2024-02-25 12:12] LABS: Add Manual Diff / Slide Review NO; Basophils Absolute Auto 100 /uL (0-100); Basophils Percent Auto 1.5 % (0-2); Eosinophils Absolute Auto 200 /uL (0-450); Eosinophils Percent Auto 4.7 % (2-4); Hematocrit 42.7 % (36-46); Hemoglobin 14.4 g/dL (12.0-16.0); Lymphocytes Absolute Auto 1600 /uL (1100-4500); Lymphocytes Percent Auto 43.6 % (25-40); Mean Corpuscular HGB Conc 33.7 % (30-36); Mean Corpuscular Hemoglobin 30.1 PG (26-34); Mean Corpuscular Volume 89.2 fL (80-100); Monocytes Absolute Auto 300 /uL (0-900); Monocytes Percent Auto 9.3 % (3-14); Neutrophils Absolute Auto 1500 /uL (1500-7000); Neutrophils Percent Auto 40.9 % (50-75); Platelet Count 186 X10^3/uL (150-400); Red Blood Cell Count 4.78 X10^6/uL (4.0-5.2); White Blood Cell Count 3.6 X10^3/uL (4.5-11.0)
[2024-02-25 12:13] LABS: Prothrombin Time 11.1 SECONDS (9.4-12.5)
[2024-02-25 12:15] LABS: PTT Partial Thromboplastin Tim 32 SECONDS (25.1-36.5)
[2024-02-25 12:18] LABS: Alanine Aminotransferase 25 IU/L (<35); Albumin 4.4 g/dL (3.5-5.0); Albumin Globulin Ratio 1.6 (1.0-2.8); Alkaline Phosphatase 81 U/L (38-126); Aspartate Aminotransferase 34 IU/L (14-36); BUN Creatinine Ratio 24.6 (6-22); Bilirubin Total 0.9 mg/dL (0.2-1.3); Blood Urea Nitrogen 15 mg/dL (7-17); Calcium 8.8 mg/dL (8.4-10.2); Carbon Dioxide 30 mmol/L (22-32); Chloride 107 mmol/L (98-107); Creatine Kinase 76 U/L (30-135); Estimated Glomerular Filt Rate > 60 mL/min (>60); Globulin 2.7 g/dL (1.7-4.1); Glucose 100 mg/dL (80-110); Lipase 98 U/L (23-300); Magnesium 2.2 mg/dL (1.6-2.3); Sodium 140 mmol/L (137-145); Total Protein 7.1 g/dL (6.3-8.2)
[2024-02-25 12:19] LABS: HEMOLYSIS 76 (0-50)
[2024-02-25 12:28] LABS: Troponin I < 0.012 ng/mL (0.01-0.034)
--- NOTE | 2024-02-25 12:32 | PC.NURSE ---
PATIENT HAS FAMILY HX OF HEART DISEASE. FATHER HAD [place] @ 68 Y/O. BROTHER HAD STROKE.
--- NOTE | 2024-02-25 12:46 | ED.CHESTPAIN ---
HPI - Chest Pain General Chief Complaint: Chest Pain Stated Complaint: chest pain Time Seen by Provider: 02/25/24 11:47 Source: patient, EMS, RN notes reviewed and old records reviewed Mode of arrival: EMS Limitations: no limitations History of Present Illness HPI narrative: 78-year-old female with history of hypothyroidism and dyslipidemia who presents with complaint of elevated blood pressure and left-sided chest discomfort. Patient states Friday she went to the dentist had a blood pressure of 178/98, she has checked it at the pharmacy had a 280/111 at 1 point and then had a 170 systolic at another point. Patient is not on any antihypertensives. She states she has occasionally had some brief chest pressure in the past and had a stress test in 2019 which per EMR was low risk at that time and read as negative. She states she did have an episode of left-sided chest discomfort radiated up to her neck. Did not go down her arms or back. She states no fevers. No shortness of breath, she did not have any vomiting but had some nausea today. She denies any diaphoresis. She denies any issues with bowel movements or swelling of the extremities. Patient did have nitro today from EMS as well as aspirin. She states symptoms have resolved. Patient states she has never had any cardiac interventions. She states she has had a prior tubal ligation and had appendectomy at the same time. No tobacco, alcohol or recreation drugs. She states family history brother had a stroke 6 years ago, her father from [place] at age 68. Patient's primary care is Dr. Jazmin Roberts. Related Data Home Medications Medication Instructions Recorded Confirmed multivitamin (Multiple Vitamins 1 tab PO QDAY ##0 06/14/17 06/25/22 tablet) iron 40 mg capsule 35 mg PO 07/17/21 06/25/22 atorvastatin 10 mg PO DAILY 10/16/21 06/25/22 levothyroxine 250 mcg PO DAILY 10/16/21 06/25/22 Previous Rx's Medication Instructions Recorded cyclobenzaprine 10 mg tablet 10 mg PO TID PRN muscle spasm #21 06/25/22 tabs metoprolol succinate 25 mg capsule 12.5 mg (1/2 x 25 mg) PO DAILY #30 02/25/24 sprinkle, ext. release 24 hr ea Allergies Allergy/AdvReac Type Severity Reaction Status Date / Time meperidine [From Demerol] AdvReac Unknown Vomiting Verified 02/25/24 11:48 Review of Systems Review of Systems ROS Unobtainable: All systems reviewed & are unremarkable except as noted in HPI and below Patient History Medical History Iron deficiency anemia GERD (gastroesophageal reflux disease) Hypercholesteremia Hypothyroidism Bilateral inguinal hernia Surgical History Hx of appendectomy Social History household members: spouse Smoking Status: Never smoker alcohol intake: current Smoking Status: Never smoker alcohol intake frequency: holidays/special occasions only Substance Use Type: does not use Exam Narrative Exam Narrative: GENERAL: Alert and oriented x three, female in mild distress HEENT: Head normocephalic, atraumatic, EOMI, pupils reactive, face symmetric, moist mucous membranes NECK: Supple, full range of motion CARDIOVASCULAR: Regular rate and rhythm without murmurs, rubs or gallops. No JVD. No edema bilateral lower extremities. RESPIRATORY: Breath sounds equal bilaterally, no wheezes rales or rhonchi. No tachypnea or accessory muscle use. ABDOMEN: Soft, nontender. Normoactive bowel sounds all 4 quadrants. No guarding or rebound, rigidity, no mass : No CVA tenderness EXTREMITIES: Normal range of motion, no clubbing or edema. Neurovascularly intact NEUROLOGICAL: Cranial nerves II through XII grossly intact. Moving all extremities SKIN: Warm, dry, no petechiae, no rashes or lesions. Initial Vital Signs Initial Vital Signs: Vital Signs Pulse Rate 67 02/25/24 11:42 Respiratory Rate 21 02/25/24 11:42 Pulse Oximetry 93 02/25/24 11:42 Course Orders Ordered: ED Orders 02/25/24 11:48 Complete Blood Count AUTO DIFF Stat Comprehensive Metabolic Panel Stat Lipase Stat Magnesium Stat PTT Partial Thromboplastin Sravan Stat Prothrombin Time INR Stat Troponin & CK Cardiac Panel Stat 02/25/24 12:01 XR chest 1V Stat EKG-12 Lead Stat 02/25/24 12:28 Urine Microscopic Stat 02/25/24 13:45 EKG-12 Lead Routine 02/25/24 13:48 Trop I [Troponin I] Stat Discontinued Medications Metoprolol Tartrate (Metoprolol Ir 25 Mg Tablet) 12.5 mg PO NOW ONE Stop: 02/25/24 13:47 Last Admin: 02/25/24 13:58 Dose: 12.5 mg Documented By: SHAMIKA Vital Signs Vital signs: Vital Signs - 8 hr 02/25/24 11:42 02/25/24 11:43 02/25/24 11:45 Pulse Rate 67 60 Respiratory Rate 21 12 Blood Pressure 139/63 139/63 Pulse Oximetry 93 99 Oxygen Delivery Method Room Air 02/25/24 11:45 02/25/24 11:59 02/25/24 11:59 Pulse Rate 71 65 Respiratory Rate 22 29 H Blood Pressure 182/74 H Pulse Oximetry 97 97 Oxygen Delivery Method 02/25/24 12:00 02/25/24 12:00 02/25/24 12:30 Pulse Rate 62 61 Respiratory Rate 26 H 19 Blood Pressure 173/77 H Pulse Oximetry 98 99 Oxygen Delivery Method 02/25/24 12:31 02/25/24 12:31 02/25/24 13:00 Pulse Rate 61 57 L Respiratory Rate 21 16 Blood Pressure 161/71 H Pulse Oximetry 98 91 Oxygen Delivery Method 02/25/24 13:00 02/25/24 13:30 02/25/24 13:30 Pulse Rate 75 Respiratory Rate 14 Blood Pressure 153/65 H 167/75 H Pulse Oximetry 98 Oxygen Delivery Method 02/25/24 14:00 02/25/24 14:00 02/25/24 15:20 Pulse Rate 59 L 64 Respiratory Rate 12 14 Blood Pressure 160/70 H 160/71 H Pulse Oximetry 98 97 Oxygen Delivery Method Room Air MDM - Chest Pain Lab Data 02/25/24 11:48 02/25/24 11:48 Labs: Lab Results 02/25/24 02/25/24 02/25/24 Range/Units 11:48 12:28 13:15 WBC 3.6 L (4.5-11.0) X10^3/uL RBC 4.78 (4.0-5.2) X10^6/uL Hgb 14.4 (12.0-16.0) g/dL Hct 42.7 (36-46) % MCV 89.2 (80-100) fL MCH 30.1 (26-34) PG MCHC 33.7 (30-36) % RDW 14.0 (11.6-14.8) % Plt Count 186 (150-400) X10^3/uL Neut % (Auto) 40.9 L (50-75) % Lymph % (Auto) 43.6 H (25-40) % [place] % (Auto) 9.3 (3-14) % Eos % (Auto) 4.7 H (2-4) % Baso % (Auto) 1.5 (0-2) % Neut # (Auto) 1500 (8587-9041) /uL Lymph # (Auto) 1600 (8887-5152) /uL [place] # (Auto) 300 (0-900) /uL Eos # (Auto) 200 (0-450) /uL Baso # (Auto) 100 (0-100) /uL PT 11.1 (9.4-12.5) SECONDS INR 1.0 (0.9-1.3) APTT 32 (25.1-36.5) SECONDS Sodium 140 (137-145) mmol/L Potassium 4.0 (3.4-5.1) mmol/L Chloride 107 (98-107) mmol/L Carbon Dioxide 30 (22-32) mmol/L BUN 15 (7-17) mg/dL Creatinine 0.61 (0.52-1.04) mg/dL Estimated GFR > 60 (>60) mL/min BUN/Creatinine Ratio 24.6 H (6-22) Glucose 100 (80-110) mg/dL Calcium 8.8 (8.4-10.2) mg/dL Magnesium 2.2 (1.6-2.3) mg/dL Total Bilirubin 0.9 (0.2-1.3) mg/dL AST 34 (14-36) IU/L ALT 25 (<35) IU/L Alkaline Phosphatase 81 (38-126) U/L Total Creatine Kinase 76 (30-135) U/L Troponin I < 0.012 Cancelled (0.01-0.034) ng/mL Total Protein 7.1 (6.3-8.2) g/dL Albumin 4.4 (3.5-5.0) g/dL Globulin 2.7 (1.7-4.1) g/dL Albumin/Globulin Ratio 1.6 (1.0-2.8) Lipase 98 (23-300) U/L Urine RBC 0-1/hpf (0-5/HPF) Urine WBC 0-1/hpf (0-5/HPF) Ur Squamous Epith Cells None seen (0-5/HPF) Urine Bacteria Occasional (0-1) (None) Ur Culture Indicated? Cult not indicated Vol Urine Centrifuged 10ml (spun) 02/25/24 Range/Units 13:48 WBC (4.5-11.0) X10^3/uL RBC (4.0-5.2) X10^6/uL Hgb (12.0-16.0) g/dL Hct (36-46) % MCV (80-100) fL MCH (26-34) PG MCHC (30-36) % RDW (11.6-14.8) % Plt Count (150-400) X10^3/uL Neut % (Auto) (50-75) % Lymph % (Auto) (25-40) % [place] % (Auto) (3-14) % Eos % (Auto) (2-4) % Baso % (Auto) (0-2) % Neut # (Auto) (0530-1159) /uL Lymph # (Auto) (6750-2929) /uL [place] # (Auto) (0-900) /uL Eos # (Auto) (0-450) /uL Baso # (Auto) (0-100) /uL PT (9.4-12.5) SECONDS INR (0.9-1.3) APTT (25.1-36.5) SECONDS Sodium (137-145) mmol/L Potassium (3.4-5.1) mmol/L Chloride (98-107) mmol/L Carbon Dioxide (22-32) mmol/L BUN (7-17) mg/dL Creatinine (0.52-1.04) mg/dL Estimated GFR (>60) mL/min BUN/Creatinine Ratio (6-22) Glucose (80-110) mg/dL Calcium (8.4-10.2) mg/dL Magnesium (1.6-2.3) mg/dL Total Bilirubin (0.2-1.3) mg/dL AST (14-36) IU/L ALT (<35) IU/L Alkaline Phosphatase (38-126) U/L Total Creatine Kinase (30-135) U/L Troponin I < 0.012 (0.01-0.034) ng/mL Total Protein (6.3-8.2) g/dL Albumin (3.5-5.0) g/dL Globulin (1.7-4.1) g/dL Albumin/Globulin Ratio (1.0-2.8) Lipase (23-300) U/L Urine RBC (0-5/HPF) Urine WBC (0-5/HPF) Ur Squamous Epith Cells (0-5/HPF) Urine Bacteria (None) Ur Culture Indicated? Vol Urine Centrifuged Urine Dip Bedside Urine Glucose Negative Bedside Urine Bilirubin - Negative Bedside Urine Ketone - Negative Urine Specific [place] 1.015 Bedside Urine Occult Blood +/- Bedside Urine pH 7.5 Bedside Urine Protein - Negative Bedside Urine Urobilinogen - Negative Bedside Urine Nitrite - Negative Bedside Urine Leukocytes - Negative Esterase Imaging Data Chest x-ray: Radiologist's Impression: [address] [address] XRay Report Signed Patient: Camrel Newman MR#: [id number] : 1945 Acct:[id number] Age/Sex: 78 / F Date of Service: 02/25/24 Loc: ED Accession Number: [id number] Procedure: XR chest 1V Ordering Provider: Shelby Arciniega D.O. PROCEDURE: XR CHEST 1V INDICATIONS: chest pain TECHNIQUE: One view of the chest was acquired. COMPARISON: None. FINDINGS: Surgical changes and devices: None. Lungs and pleura: Lungs are clear. No pleural effusions or pneumothorax. Mediastinum: Mediastinal contours appear normal. Heart size is normal. Bones and chest wall: No suspicious bony lesions. Overlying soft tissues appear unremarkable. IMPRESSION: No acute cardiopulmonary abnormality is seen. Dictated by: Christiano Davies M.D. on 02/25/2024 at 12:46 Approved by: Christiano Davies M.D. on 02/25/2024 at 12:46 ECG Data Attestation: I personally reviewed and interpreted this ECG as follows: Interpretation: Sinus bradycardia with marked sinus arrhythmia rate of 59 ID 184 QRS 80 QTC of [address] changes appreciated. 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 EKG 2. Sinus bradycardia first-degree AV block rate of 56 ID 212 QRS 84 QTC 409, no acute ST or dynamic changes appreciated. MDM Narrative Medical decision making narrative: Patient's workup today shows labs with a white count of 3.6 hemoglobin of 14 platelets of 184, INR is 1 creatinine 0.6 with a BUN of 15 glucose of 100 sodium 140 potassium of 4 chloride of 107 and CO2 30. LFTs were negative. Initial troponin was less than 0.012, repeat troponin is less than 0.012. Chest x-ray was negative for acute change poc urine was negative. Discussed with patient she has known dyslipidemia, and a cardiac history with a father. Does not have any known hypertension but has had several elevated readings recently. She has already set up an appointment for tomorrow with her primary care for follow-up. Patient did have reported chest pain, had nitro in the field which resolved symptoms. She also received aspirin. Patient was given a dose of metoprolol here as she has had some continued hypertension in the department. Discussed with patient she prefers discharged home rather than being kept for observation. She has not appointment in place tomorrow with her primary care, Dr. Roberts who could set her up with stress testing. We will have her continue with aspirin 81 mg daily, started on metoprolol for blood pressure control and strict return precautions. I also spoke with Dr. Roberts who will see patient tomorrow. Discharge Plan Departure Patient Disposition: Home Clinical Impression: Chest pain Activity Restrictions/Additional Instructions: Follow up with your physician tomorrow for recheck, discuss if you should have repeat stress testing. Please take an aspirin 81 mg daily until you see your physician. You have been given a prescription for metoprolol for your blood pressure. Take 1 tablet daily. Talk with your physician about whether to continue this medication. Prescription included with your paperwork. Please return for new chest pain or shortness of breath, lightheadedness or passing out, sweatiness, persistent nausea or vomiting, new swelling of extremities or other new or concerning changes Prescriptions: New metoprolol succinate 25 mg capsule,sprinkle,ER 24hr 12.5 mg PO DAILY Qty: 30 0RF No Action cyclobenzaprine 10 mg tablet 10 mg PO TID PRN (Reason: muscle spasm) Qty: 21 0RF multivitamin [Multiple Vitamins] 1 EACH tablet 1 tab PO QDAY Qty: 0 iron 40 mg Capsule 35 mg PO atorvastatin 10 mg PO DAILY levothyroxine 250 mcg PO DAILY Referrals: Jazmin Roberts MD [Primary Care Provider] - Stand Alone Forms: Patient Portal/API
[2024-02-25 13:09] LABS: Bacteria Urine Occasional (0-1); Culture Indicated Urine Cult Not Indicated; RBC Urine 0-1/HPF (0-5/HPF); Squamous Epithelial Cell Urine None Seen (0-5/HPF); Urine Volume 10mL (spun); WBC Urine 0-1/HPF (0-5/HPF)
[2024-02-25] MEDS: METOPROLOL IR 25 MG TABLET 12.5 MG PO (13:58)
[2024-02-25 14:31] LABS: Troponin I < 0.012 ng/mL (0.01-0.034)
== END 2024-02-25 15:21 | disposition home or self-care (01) ==
PROVIDERS: Emergency Provider Emergency Medicine; PCP Internal Medicine
DX: R07.9 Chest pain, unspecified (principal); R00.1 Bradycardia, unspecified
CPT/HCPCS: 71045; 80053; 81003; 81015; 82550; 83690; 83735; 84484; 85025; 85610; 85730; 93005; 99284

== ENCOUNTER → 2024-07-21 12:55 | Outpatient (CLI) | payer MEDICARE, OTHER, SELFPAY ==
--- NOTE | 2024-07-21 | DI.MG.S_ITS ---
BILATERAL DIGITAL SCREENING MAMMOGRAM 3D/2D WITH CAD: 07/21/2024 CLINICAL: Routine screening. Comparison is made to exams dated: 05/01/2022 mammogram, 06/23/2023 mammogram, and 04/27/2021 mammogram - [facility]. There are scattered areas of fibroglandular density (category b / 25%-50% glandular tissue). Current study was also evaluated with a Computer Aided Detection (CAD) system. No significant masses, calcifications, or other findings are seen in either breast. There has been no significant interval change. IMPRESSION: NEGATIVE There is no mammographic evidence of malignancy. A 1 year screening mammogram is recommended. Based on the Tyrer Cuzick model (a risk assessment model) the patient's lifetime risk is 2.3% and her 10 year risk is 0.0%. According to the ACR, ACS, and NCCN guidelines, an annual breast MRI exam along with mammogram is recommended if the patient's lifetime risk is 20% or greater. This exam was interpreted at Station ID: [id number]. NOTE: For mammograms, a report in lay terms will be sent to the patient. Approximately 15% of breast malignancies will not be visualized mammographically. In the management of a palpable breast mass, a negative mammogram must not discourage biopsy of a clinically suspicious lesion. Electronically Signed By: Papa marley/grisel:07/21/2024 17:43:07 letter sent: Normal Exam ACR BI-RADS Category 1: Negative
== END ==
PROVIDERS: PCP Internal Medicine; Referring Provider Internal Medicine; Visit Provider Internal Medicine
DX: Z12.31 Encounter for screening mammogram for malignant neoplasm of breast (principal)
CPT/HCPCS: 77063; 77067

== ENCOUNTER 2025-02-25 17:52 | Emergency (ER) | payer MEDICARE, OTHER, SELFPAY ==
[2025-02-25] VITALS (17 sets, daily range): BP systolic 149–181; BP diastolic 75–137; PULSE 80–103; RESP 15–34; TEMP 36.9; O2SAT 81–100; BMI 24.0
--- NOTE | 2025-02-25 18:12 | EKG_ITS ---
[address] [address] Test Date: 2025-02-25 Pat Name: Carmel Newman Department: Room: Gender: Female Range Examiner: SUJEY : 1945 Requested By: Order Number: [id number] Reading MD: Avery Montaño Measurements Intervals [place] Rate: 76 P: 78 MI: 186 QRS: 18 QRSD: 78 T: 44 QT: 372 QTc: 418 Interpretive Statements Normal sinus rhythm Electronically Signed On 02-25-2025 19:08:37 PDT by Avery Montaño
[2025-02-25] MEDS: ONDANSETRON 4 MG/2 ML INJ IV ×2 (18:39→21:21)
[2025-02-25 19:05] LABS: Add Manual Diff / Slide Review NO; Basophils Absolute Auto 0 /uL (0-100); Basophils Percent Auto 0.5 % (0-2); Eosinophils Absolute Auto 0 /uL (0-450); Eosinophils Percent Auto 0.7 % (2-4); Hematocrit 49.6 % (36-46); Hemoglobin 16.6 g/dL (12.0-16.0); Lymphocytes Absolute Auto 1100 /uL (1100-4500); Lymphocytes Percent Auto 15.3 % (25-40); Mean Corpuscular HGB Conc 33.5 % (30-36); Mean Corpuscular Hemoglobin 30.1 PG (26-34); Mean Corpuscular Volume 89.8 fL (80-100); Monocytes Absolute Auto 300 /uL (0-900); Monocytes Percent Auto 4.3 % (3-14); Neutrophils Absolute Auto 5800 /uL (1500-7000); Neutrophils Percent Auto 79.2 % (50-75); Platelet Count 237 X10^3/uL (150-400); Red Blood Cell Count 5.52 X10^6/uL (4.0-5.2); Red Cell Distribution Width 13.3 % (11.6-14.8); White Blood Cell Count 7.3 X10^3/uL (4.5-11.0)
[2025-02-25 19:12] LABS: Alanine Aminotransferase 41 IU/L (<35); Albumin 5.1 g/dL (3.5-5.0); Albumin Globulin Ratio 1.5 (1.0-2.8); Alkaline Phosphatase 117 U/L (38-126); Aspartate Aminotransferase 43 IU/L (14-36); BUN Creatinine Ratio 19.1 (6-22); Blood Urea Nitrogen 13 mg/dL (7-17); Calcium 9.7 mg/dL (8.4-10.2); Carbon Dioxide 24 mmol/L (22-32); Chloride 100 mmol/L (98-107); Estimated Glomerular Filt Rate > 60 mL/min (>60); Globulin 3.5 g/dL (1.7-4.1); Glucose 138 mg/dL (70-99); HEMOLYSIS 18 (0-50); Lipase 93 U/L (23-300); Potassium 4.1 mmol/L (3.4-5.1); Sodium 136 mmol/L (137-145); Total Protein 8.6 g/dL (6.3-8.2)
[2025-02-25 19:24] LABS: Troponin I < 0.012 ng/mL (0.01-0.034)
--- NOTE | 2025-02-25 21:09 | DI.RAD.S_ITS ---
PROCEDURE: XR HIP W PEL IF DONE RT 2V INDICATIONS: hip pain TECHNIQUE: 2 views of the hip were acquired. COMPARISON: None. FINDINGS: Bones: No fractures or dislocations. No suspicious bony lesions. The visualized pelvic ring appears intact. Soft tissues: No suspicious soft tissue calcifications or masses. IMPRESSION: No acute bony abnormality. Dictated by: Robert Galindo M.D. on 02/25/2025 at 21:50 Approved by: Robert Galindo M.D. on 02/25/2025 at 21:50
--- NOTE | 2025-02-25 21:13 | ED.EXTPRO ---
HPI - Extremity Problem General Chief complaint: Extremity Problem,Nontraumatic Stated complaint: Vomiting, R Hip Pain Time Seen by Provider: 02/25/25 21:08 Source: patient, RN notes reviewed and old records reviewed Mode of arrival: Ambulatory Limitations: no limitations History of Present Illness HPI Narrative: 79-year-old female history of hypothyroidism, dyslipidemia, hypertension had recent hospitalization for suspected stroke did receive TNK but had negative MRI for vertigo symptoms. Patient states she developed right hip pain recently no falls or trauma, started in the last day or so is worse a little bit with some movement. Has had similar symptoms a few years ago it ultimately resolved without any interventions. The reason she presents today is because she was also having nausea vomiting particularly with movement. Patient states she was had some spontaneous episodes of vomiting on and off for a month or 2 she has not had any abdominal pain. She denies fevers. She denies any vertigo or sensation of spinning, dizziness or off balance but notes that when she ambulates or moves around it seems to make her spontaneously vomit. She notes she was had some headaches in the past month but none today. She denies chest pain no shortness of breath. States she had a bowel movement yesterday, they has been normal caliber and format with no black or bloody stools. She denies any new dysuria urgency or frequency. Patient states she has not had any numbness, tingling or weakness or difficulty with her extremities. Patient states he was currently on medication for hypertension, hypothyroidism, statin no aspirin or thinners. She was had prior hernia repair and appendectomy. No known drug allergies, no tobacco, alcohol or recreational drugs. Dr. Jazmin roberts as her primary care physician. She notes that she was in [place] last Friday on her way to the airport had what sounds like a vertigo episode had a possible NIH of 2 feeling nauseated off balance with spinning sensation in vomiting. Received TNK for facial droop in the symptoms. Ended up having negative CT and MRI and stroke workup. Was told it may has been vertigo versus dehydration versus some other cause but that she did not have a stroke. Related Data Home Medications Medication Instructions Recorded Confirmed multivitamin (Multiple Vitamins 1 tab PO QDAY ##0 06/14/17 06/25/22 tablet) iron 40 mg capsule 35 mg PO 07/17/21 06/25/22 atorvastatin 10 mg PO DAILY 10/16/21 06/25/22 levothyroxine 250 mcg PO DAILY 10/16/21 06/25/22 Previous Rx's Medication Instructions Recorded cyclobenzaprine 10 mg tablet 10 mg PO TID PRN muscle spasm #21 06/25/22 tabs metoprolol succinate 25 mg capsule 12.5 mg (1/2 x 25 mg) PO DAILY #30 02/25/24 sprinkle, ext. release 24 hr ea hydrocodone 5 mg-acetaminophen 325 1 tab PO Q6H PRN pain #10 tabs 02/25/25 mg tablet meclizine 25 mg chewable tablet See Rx Instructions .Route 02/25/25 .COMPLEX #20 tabs ondansetron 4 mg disintegrating 4 mg PO Q6H PRN nausea and 02/25/25 tablet vomiting #10 tabs Allergies Allergy/AdvReac Type Severity Reaction Status Date / Time meperidine [From Demerol] AdvReac Unknown Vomiting Verified 02/25/25 20:54 Review of Systems Review of Systems ROS Unobtainable: All systems reviewed & are unremarkable except as noted in HPI and below Patient History Medical History Iron deficiency anemia GERD (gastroesophageal reflux disease) Hypercholesteremia Hypothyroidism Bilateral inguinal hernia Surgical History Hx of appendectomy Social History household members: spouse Smoking Status: Former smoker alcohol intake: current Smoking Status: Former smoker alcohol intake frequency: holidays/special occasions only Exam Narrative Exam Narrative: GEN: well nourished, well appearing female, alert and oriented x 3, patient appears to be in mild distress. HEENT: Atraumatic, pupils are equal round reactive to light, extraocular movements are intact, no nystagmus, nares are clear, TMs are clear with no fluid, there is no conjunctival pallor. Throat is clear without any exudates, erythema, tonsillar enlargement or uvular deviation, no facial droop HEART: Regular rate and rhythm without murmur, clicks, rubs. pulses are equal in upper and lower extremities LUNGS:Lungs clear to auscultation, no wheezes, rales, crackles, chest moves symmetrically ABD:bowel sounds normal, soft, non-tender, no guarding, rebound, rigidity, no masses noted, no hepatosplenomegaly :No CVA tenderness MSCL: Non-tender, no muscle atrophy, muscles strength 5/5 upper and lower extremities, full range of motion. NEURO:CN 2-12 intact, sensation normal. Initial Vital Signs Initial Vital Signs: Vital Signs Temperature 98.5 F 02/25/25 17:59 Pulse Rate 103 H 02/25/25 17:59 Respiratory Rate 18 02/25/25 17:59 Blood Pressure 149/95 H 02/25/25 17:59 Pulse Oximetry 99 02/25/25 17:59 Oxygen Delivery Method Room Air 02/25/25 17:59 Course Orders Ordered: ED Orders 02/25/25 18:12 EKG-12 Lead Stat 02/25/25 18:48 Complete Blood Count AUTO DIFF Stat Comprehensive Metabolic Panel Stat Lipase Stat Trop I [Troponin I] Stat 02/25/25 21:09 XR hip w pel RT 2V Stat 02/25/25 21:50 CT abdomen pelvis w con Stat 02/25/25 23:00 Urine Microscopic Stat Discontinued Medications Hydrocodone Bitart/Acetaminophen (Hydrocodone/Acet 5/325 Prepack) 1 bottle MISC DIRECTED ONE Stop: 02/25/25 23:24 Last Admin: 02/25/25 23:33 Dose: 1 bottle Documented By: JASPREET Sodium Chloride (Normal Saline 0.9%) 1,000 mls @ 1,000 mls/hr IV BOLUS ONE Stop: 02/25/25 22:49 Last Infusion: 02/25/25 23:51 Dose: Infused Documented By: Admin: 02/25/25 22:25 Dose: 1,000 mls/hr Documented By: JASPREET Ketorolac Tromethamine (Ketorolac 30 Mg/Ml Vial) 15 mg IV NOW ONE Stop: 02/25/25 21:10 Last Admin: 02/25/25 21:21 Dose: 15 mg Documented By: JASPREET Meclizine HCl (Meclizine Hcl 12.5 Mg Tablet) 50 mg PO NOW ONE Stop: 02/25/25 21:59 Last Admin: 02/25/25 22:26 Dose: 50 mg Documented By: JASPREET Ondansetron HCl (Ondansetron 4 Mg/2 Ml Inj) 4 mg IV NOW PRN PRN Reason: Nausea And Vomiting Last Admin: 02/25/25 21:21 Dose: 4 mg Documented By: Admin: 02/25/25 18:39 Dose: 4 mg Documented By: GREGORIA Ondansetron HCl (Ondansetron 4 Mg Odt) 4 mg PO NOW PRN PRN Reason: Nausea And Vomiting Ondansetron HCl (Ondansetron 4 Mg Odt Prepack) 1 bottle MISC DIRECTED ONE Stop: 02/25/25 23:24 Last Admin: 02/25/25 23:33 Dose: 1 bottle Documented By: JASPREET Vital Signs Vital signs: Vital Signs - 8 hr 02/25/25 19:30 02/25/25 20:00 02/25/25 20:30 Pulse Rate 82 80 87 Respiratory Rate 34 H 32 H 30 H Blood Pressure 162/77 H 165/75 H Pulse Oximetry 97 95 94 02/25/25 20:30 02/25/25 21:00 02/25/25 21:00 Pulse Rate 82 Respiratory Rate 29 H Blood Pressure 167/79 H 179/78 H Pulse Oximetry 97 02/25/25 21:30 02/25/25 22:06 02/25/25 22:30 Pulse Rate 80 84 82 Respiratory Rate 18 21 24 Blood Pressure Pulse Oximetry 94 100 99 02/25/25 22:33 02/25/25 22:33 02/25/25 23:02 Pulse Rate 80 92 H Respiratory Rate 19 21 Blood Pressure 171/75 H Pulse Oximetry 98 81 L 02/25/25 23:03 02/25/25 23:03 02/25/25 23:04 Pulse Rate 90 84 Respiratory Rate 16 15 Blood Pressure 165/137 H Pulse Oximetry 99 98 02/25/25 23:04 02/25/25 23:06 02/25/25 23:06 Pulse Rate 90 Respiratory Rate 19 Blood Pressure 171/81 H 168/81 H Pulse Oximetry 99 MDM - Extremity (Nontraumatic) Lab Data 02/25/25 18:48 02/25/25 18:48 Labs: Lab Results 02/25/25 02/25/25 Range/Units 18:48 23:00 WBC 7.3 (4.5-11.0) X10^3/uL RBC 5.52 H (4.0-5.2) X10^6/uL Hgb 16.6 H (12.0-16.0) g/dL Hct 49.6 H (36-46) % MCV 89.8 (80-100) fL MCH 30.1 (26-34) PG MCHC 33.5 (30-36) % RDW 13.3 (11.6-14.8) % Plt Count 237 (150-400) X10^3/uL Neut % (Auto) 79.2 H (50-75) % Lymph % (Auto) 15.3 L (25-40) % Reynolds % (Auto) 4.3 (3-14) % Eos % (Auto) 0.7 L (2-4) % Baso % (Auto) 0.5 (0-2) % Neut # (Auto) 5800 (8913-7870) /uL Lymph # (Auto) 1100 (2859-5257) /uL Reynolds # (Auto) 300 (0-900) /uL Eos # (Auto) 0 (0-450) /uL Baso # (Auto) 0 (0-100) /uL Sodium 136 L (137-145) mmol/L Potassium 4.1 (3.4-5.1) mmol/L Chloride 100 (98-107) mmol/L Carbon Dioxide 24 (22-32) mmol/L BUN 13 (7-17) mg/dL Creatinine 0.68 (0.52-1.04) mg/dL Estimated GFR > 60 (>60) mL/min BUN/Creatinine Ratio 19.1 (6-22) Glucose 138 H (70-99) mg/dL Calcium 9.7 (8.4-10.2) mg/dL Total Bilirubin 1.0 (0.2-1.3) mg/dL AST 43 H (14-36) IU/L ALT 41 H (<35) IU/L Alkaline Phosphatase 117 (38-126) U/L Troponin I < 0.012 (0.01-0.034) ng/mL Total Protein 8.6 H (6.3-8.2) g/dL Albumin 5.1 H (3.5-5.0) g/dL Globulin 3.5 (1.7-4.1) g/dL Albumin/Globulin Ratio 1.5 (1.0-2.8) Lipase 93 (23-300) U/L Urine RBC 1-5/hpf (0-5/HPF) Urine WBC 0-1/hpf (0-5/HPF) Ur Squamous Epith Cells 1-5 /hpf (0-5/HPF) Urine Bacteria Occasional (0-1) (None) Hyaline Casts 0-1/lpf (None) Ur Culture Indicated? Cult not indicated Vol Urine Centrifuged 10ml (spun) Urine Dip Bedside Urine Glucose Negative Bedside Urine Bilirubin - Negative Bedside Urine Ketone ++ 40 Urine Specific Byron 1.01 Bedside Urine Occult Blood + Bedside Urine pH 6.5 Bedside Urine Protein + 30 Bedside Urine Urobilinogen - Negative Bedside Urine Nitrite - Negative Bedside Urine Leukocytes - Negative Esterase ECG Data Attestation EKG: I personally reviewed and interpreted this ECG as follows: Prior ECG tracings: available for review Interpretation: EKG shows sinus rhythm rate of 76 LA 186 QRS is 78 QTC of 418, no acute ST elevation depression noted. Patient was prior EKG from 02/25/2024, patient had sinus bradycardia with marked sinus arrhythmia with a rate of 59 at that time EKG appears similar to today's. MDM Narrative Medical decision making narrative: EKG sinus rhythm no acute ST changes appears similar to prior from February of 2024. Labs show normal white count hemoglobin 16.6 was 14 in February of 2024 but was elevated in June of 2022. Platelets are 237 predominance of neutrophils. Coags are negative, sodium is 136 BUN electrolytes and creatinine appropriate 13.68 with no electrolyte abnormalities glucose is 138 AST is 43 ALT is 41 bilirubin is 1 alk-phos is 117 lipase is 93. Troponins less than 0.012. Hip xray shows no acute bony abnormality CT abdomen pelvis no acute abnormality no free fluid, presumed fundal fibroid measuring 1.5 cm, mild scoliosis degenerative joint disease most pronounced at L1-L2. Bilateral peripelvic cysts are unchanged small cysts in the liver. Patient had Toradol, Zofran. 79-year-old female describes feeling nauseated with movement but denies any vertigo off balance or other changes did have a pretty significant episode last Friday was treated as a stroke code TNK but had negative MR post was told did not have a stroke. She notes that she has been having nausea and vomiting intermittently she was has been going on for a month and a half but not necessarily associated with movement. She also notes right hip pain that has new with no trauma or injuries but has had if pain in the past which has resolved without intervention. Her neurologic exam here is normal, she denies any vertigo symptoms, balance issues or other changes. Did not have any imaging of her abdomen at any times we will obtain this although less likely source discussed doing a dose of oral meclizine to see if this helps. Patient ambulated here in the department to the bathroom without any assistance she does feel nauseated afterwards but has not had any vomiting. Both her and daughter expressed concern about her nausea and discomfort but she was ambulating without any assistance not having any active vomiting do not have any current medical reason to admit her. Patient also noted that she mowed her lawn the day before with a push mower. Although she describes having symptoms for the last several days. Discharge Plan Departure Patient Disposition: Home Clinical Impression: Vomiting, Hip pain, right Instructions: DI for Vertigo Activity Restrictions/Additional Instructions: Your workup today does not show any changes to the bowel, your hip does not show any fractures or breaks you do have some degenerative changes your lower lumbar spine and a presumed fundal fibroid your uterus that is 1.5 cm. Your your workup today does not show a clear source of your symptoms I do think you should follow up for recheck for your persistent symptoms with ENT as well as your primary care physician. If you find it helpful you can take meclizine 1-2 tablets every 6 hours as needed. You can take ondansetron 1 tablet every 6 hours as needed for nausea. You can take [place] 1-2 tablets every 6 hours as needed for pain. This medication can make you sleepy do not drive, perform hazardous activities or make any major decisions while taking it. This medication will make you constipated please take a stool softener once to twice daily until stools are soft and regular. Prescription sent to [facility]. Please return for fevers, new or worsening abdominal back or flank pain, new swelling in your legs, numbness tingling or weakness, persistent vomiting, new dizziness or spinning, new numbness or difficulty with speech, movement or other new or concerning changes. Prescriptions: New meclizine 25 mg tablet,chewable See Rx Instructions .ROUTE .COMPLEX Qty: 20 0RF Rx Instructions: Can take 1-2 tablets every 6 hours as needed for vertigo ondansetron 4 mg tablet,disintegrating 4 mg PO Q6H PRN (Reason: nausea and vomiting) Qty: 10 0RF hydrocodone-acetaminophen 5-325 mg tablet 1 tab PO Q6H PRN (Reason: pain) Qty: 10 0RF No Action cyclobenzaprine 10 mg tablet 10 mg PO TID PRN (Reason: muscle spasm) Qty: 21 0RF multivitamin [Multiple Vitamins] 1 EACH tablet 1 tab PO QDAY Qty: 0 iron 40 mg Capsule 35 mg PO atorvastatin 10 mg PO DAILY levothyroxine 250 mcg PO DAILY metoprolol succinate 25 mg capsule,sprinkle,ER 24hr 12.5 mg PO DAILY Qty: 30 0RF Referrals: Jazmin Roberts MD [Primary Care Provider] - Stand Alone Forms: Patient Portal/API/Survey
[2025-02-25] MEDS: KETOROLAC 30 MG/ML VIAL 15 MG IV (21:21)
--- NOTE | 2025-02-25 21:50 | DI.CT.S_ITS ---
PROCEDURE: CT ABDOMEN PELVIS W CON INDICATIONS: R hip pain, vomiting intermittent, worse w/ move no vertigo TECHNIQUE: After the administration of intravenous contrast, axial sections acquired from the lung bases to the pubic symphysis. Coronal and sagittal reformats were performed. For radiation dose reduction, the following was used: automated exposure control, adjustment of mA and/or kV according to patient size. COMPARISON: [facility], CT, CT ABDOMEN PELVIS W CON, 07/02/2022, 13:47. FINDINGS: Image quality: Diagnostic. Lower Chest: No significant findings. ABDOMEN: Liver: No solid mass. Small cysts. Gallbladder: No radiopaque gallstones or wall thickening. Biliary ducts: No biliary dilation. Pancreas: No ductal dilation. Spleen: Size is within normal limits. Adrenal Glands: No adrenal nodules. Kidneys and Ureters: No convincing hydronephrosis. Bilateral peripelvic cysts are unchanged. No solid mass. No complex renal cystic lesion which requires follow up. Stomach and Bowel: Normal colonic caliber, without significant wall thickening. The appendix is not seen. No small bowel obstruction. Stomach is not significantly distended. Peritoneum: No abnormal intraperitoneal fluid. No free air. Ventral Wall: No significant ventral hernia. Abdominal Nodes: No retroperitoneal or mesenteric adenopathy by size criteria. Vessels: Aorta and inferior vena cava are normal in size. Calcified atherosclerotic plaque. PELVIS: Pelvic Organs: Retroverted uterus. Presumed fundal fibroid measuring 1.5 cm. Bladder: No bladder wall thickening. No stone. Pelvic Nodes: No enlarged lymph nodes. Miscellaneous: No inguinal hernias are seen. Bones: No aggressive osseous abnormality. Mild scoliosis. DDD most pronounced at L1-L2. IMPRESSION: No acute abnormality seen. No free fluid. Dictated by: Rafael Canela M.D. on 02/25/2025 at 22:18 Approved by: Rafael Canela M.D. on 02/25/2025 at 22:26
[2025-02-25] MEDS: SODIUM CHLORIDE 0.9% 1,000 ML 1000 ML IV (22:25)
[2025-02-25] MEDS: MECLIZINE HCL 12.5 MG TABLET 50 MG PO (22:26)
[2025-02-25] MEDS: ONDANSETRON 4 MG ODT PREPACK 1 BOTTLE MISC (23:33)
[2025-02-25] MEDS: HYDROCODONE/ACET 5/325 PREPACK 1 BOTTLE MISC (23:33)
[2025-02-25 23:40] LABS: Bacteria Urine Occasional (0-1); Squamous Epithelial Cell Urine 1-5 /HPF (0-5/HPF); Urine Volume 10mL (spun); WBC Urine 0-1/HPF (0-5/HPF)
[2025-02-25 23:42] LABS: RBC Urine 1-5/HPF (0-5/HPF)
[2025-02-25 23:43] LABS: Culture Indicated Urine Cult Not Indicated; Hyaline Casts Urine 0-1/LPF
== END 2025-02-25 23:53 | disposition home or self-care (01) ==
PROVIDERS: Emergency Provider Emergency Medicine; PCP Internal Medicine
DX: R11.2 Nausea with vomiting, unspecified (principal); M25.551 Pain in right hip; I10 Essential (primary) hypertension; Z87.891 Personal history of nicotine dependence
CPT/HCPCS: 36415; 73502; 74177; 80053; 81003; 81015; 83690; 84484; 85025; 93005; 96361; 96374; 96375; 99284; J1885; J2405; Q9967

== ENCOUNTER → 2025-03-04 18:16 | Outpatient (CLI) | payer MEDICARE, OTHER, SELFPAY ==
--- NOTE | 2025-03-04 18:18 | DI.MRI.S_ITS ---
PROCEDURE: MR PELIS WO/W CON INDICATIONS: gluteal pain TECHNIQUE: Noncontrast coronal T1 spin echo and STIR, sagittal T1 spin echo with fat saturation and STIR, axial T1 spin echo and T2 fast spin echo with fat saturation. After the administration of contrast, axial/sagittal/coronal T1 spin echo with fat saturation through the bony pelvis. COMPARISON: [facility], CT, CT ABDOMEN PELVIS W CON, 02/25/2025, 21:59. [facility], CR, XR HIP W PEL RT 2V, 02/25/2025, 21:09. FINDINGS: Image quality: Excellent. Bones: No acute trabecular bone injury or fracture. No suspicious marrow replacing mass. [id number]-[id number] degenerative changes in the hips bilaterally. Degenerative disc disease and facet hypertrophy are seen in the included spine with suspected spinal canal narrowing at the L4-5 level. A posterior synovial cyst is seen adjacent to a right sided facet. No avascular necrosis of the femoral heads. Mild postcontrast enhancement of the right pubic body adjacent to the pubic symphysis versus artifact related to adjacent bowel gas. Soft tissues: No solid enhancing soft tissue mass. Mild fluid signal and enhancement at the distal gluteus medius and minimus tendon insertions bilaterally is suspicious for low-grade partial tearing superimposed on chronic tendinosis. Findings appear relatively symmetric between left and right. Mild proximal hamstring tendinosis bilaterally. Iliopsoas tendon insertions are intact. Direct and indirect heads of the proximal rectus femoris appear intact. Proximal iliotibial band fascia theron and a are intact. No signs of ischiofemoral impingement. IMPRESSION: 1. Suspected low-grade partial tearing of the distal gluteus medius and minimus tendons at their insertions onto the greater trochanters bilaterally superimposed on moderate chronic tendinosis. 2. Degenerative changes are seen in the included spine with suspected spinal canal narrowing. Consider dedicated lumbar spine MRI. 3. 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 4. Increased postcontrast signal in the right parasymphyseal region could indicate mild osteitis pubis versus artifact related to inhomogeneous fat suppression. 5. Mild proximal hamstring tendinosis. Approved by: Tony Gray M.D. on 03/07/2025 at 9:05
== END ==
PROVIDERS: PCP Internal Medicine; Referring Provider Internal Medicine; Visit Provider Internal Medicine
DX: M79.18 Myalgia, other site (principal); M16.0 Bilateral primary osteoarthritis of hip; M89.8X8 Other specified disorders of bone, other site
CPT/HCPCS: 72197; A9579

== ENCOUNTER → 2025-03-19 10:51 | Outpatient (CLI) | payer MEDICARE, OTHER, SELFPAY ==
--- NOTE | 2025-03-19 10:52 | DI.MRI.S_ITS ---
PROCEDURE: MR LUMBAR SPINE WO CON INDICATIONS: radicular lumbar pain TECHNIQUE: Noncontrast sagittal T1 spin echo and T2 fast echo, sagittal STIR, and T2 fast spin echo through the lumbar spine. In cases with scoliosis, additional coronal T2 fast spin echo may be performed. COMPARISON: None. FINDINGS: Image quality: Excellent. Alignment and Curvature: There is leftward curvature with apex at L3. There is trace retrolisthesis of L1 on L2, L2 on L3, L3 on L4, L4 on L5 and trace anterolisthesis of L5 on S1. Bone Marrow: Marrow is of normal overall signal. Reactive endplate changes are present at L2-3. No acute vertebral body compression fractures. Spinal Cord: Conus medullaris terminates at the L1 level. Visualized cord demonstrates normal signal and size. Paraspinous Soft Tissues: No paravertebral masses. Simple liver cyst. Discs: Multilevel disc desiccation most severe at L1-2. T12-L1: No disc bulge, spinal stenosis or foraminal narrowing. L1-L2: Mild disc bulge with effacement of the anterior thecal sac. Mild right foraminal narrowing with facet and ligamentum flavum hypertrophy. L2-L3: Mild disc bulge with [id number] spinal stenosis. Moderate right foraminal narrowing with facet and ligamentum flavum hypertrophy. L3-L4: Mild disc bulge with mild spinal stenosis. Xohy-bl-xbufauik bilateral foraminal narrowing, right greater than left with facet and ligamentum flavum hypertrophy. L4-L5: Mild disc bulge with severe spinal stenosis and canal compression. Moderate to severe right foraminal narrowing, [id number] left foraminal narrowing with facet and ligamentum flavum hypertrophy. L5-S1: Mild disc bulge with mild spinal stenosis. Severe left and moderate to severe right foraminal narrowing with mild compression of the exiting left L5 nerve root. IMPRESSION: Multi level foraminal narrowing most severe at L5-S1 with mild compression of the exiting left L5 nerve root. Multilevel spinal stenosis most severe at L4-5 with cord compression secondary to disc bulge with contributing effect of facet/ligamentum flavum arthropathy. Dictated by: Ileana Carlson M.D. on 03/21/2025 at 17:29 Approved by: Ileana Carlson M.D. on 03/21/2025 at 17:32
== END ==
LOC: MRI 10:52
PROVIDERS: PCP Internal Medicine; Referring Provider Orthopaedic Surgery; Visit Provider Orthopaedic Surgery
DX: M51.372 Other intervertebral disc degeneration, lumbosacral region with discogenic back pain and lower extremity pain (principal); M51.362 Other intervertebral disc degeneration, lumbar region with discogenic back pain and lower extremity pain; M48.07 Spinal stenosis, lumbosacral region; M48.061 Spinal stenosis, lumbar region without neurogenic claudication; M47.816 Spondylosis without myelopathy or radiculopathy, lumbar region; G89.29 Other chronic pain
CPT/HCPCS: 72148

== ENCOUNTER → 2025-09-23 09:43 | Outpatient (CLI) | payer MEDICARE, OTHER, SELFPAY ==
--- NOTE | 2025-09-23 09:44 | DI.MG.S_ITS ---
MM screening mammo BI: 09/23/2025. BI-RADS: 1 CLINICAL: 79-year old female for bilateral screening mammogram. Tyrer-Cuzick lifetime risk of 1.5%. No personal or first-degree family history of breast cancer. The patient had a prior right breast biopsy. PRIOR EXAMS 07/21/2024, 06/23/2023, 05/01/2022, 04/27/2021. MAMMOGRAPHY TECHNIQUE: 2D and 3D (tomosynthesis) digital mammographic views obtained, with additional images as needed for full coverage. Current study was also evaluated with a Computer Aided Detection (CAD) system. DENSITY B. There are scattered areas of fibroglandular density. MAMMOGRAPHY FINDINGS Bilateral: No suspicious mass, asymmetry, microcalcification, or other abnormality seen. IMPRESSION: * No evidence of malignancy. RECOMMENDATIONS Bilateral * Annual screening mammography. OVERALL ASSESSMENT CATEGORY BI-RADS-1: Negative. The [employer] recommends annual screening mammography beginning at age 40 for women with average risk of breast cancer. ELECTRONICALLY SIGNED: Abdi Ruff M.D. on 09/23/2025 at 11:49:08 AM PT Interpreting Station ID: [id number]
== END ==
LOC: MAMMO 09:43
PROVIDERS: PCP Internal Medicine; Referring Provider Internal Medicine; Visit Provider Internal Medicine
DX: Z12.31 Encounter for screening mammogram for malignant neoplasm of breast (principal)
CPT/HCPCS: 77063; 77067